=== PATIENT | male | born 1935 | race Caucasian/White ===

== ENCOUNTER 2018-08-10 08:15 | Day surgery (SDC) | payer MEDICARE ==
[2018-08-10] VITALS (537 sets, daily range): BP systolic 118–183; BP diastolic 61–100; PULSE 57–73; TEMP 97.5–97.7; O2SAT 92–100
[~2018-08-10] VITALS: Ht 177.8 cm; Wt 85.8 kg
[2018-08-10] MEDS ORDERED: VITAMIND3 5000 PO (08:49)
[2018-08-10] MEDS ORDERED: COREG 3.123.125 MG/T PO (08:49)
[2018-08-10] MEDS ORDERED: ASPIRIN E.C. 8181 MG PO (08:50)
[2018-08-10 09:10] LABS: HEMATOCRIT 49.5 % (42.0-52.0); HEMOGLOBIN 17.3 g/dl (13.5-18.0); MEAN CELL VOLUME 88 fl (80.0-100.0); MEAN CORPUSCULAR HEMOGLOBIN 31 pg (27.0-31.0); MEAN CORPUSCULAR HGB CONC 35 g/dl (33.0-37.0); MEAN PLATELET VOLUME 9.9 fl (7.4-10.4); PLATELET COUNT 181 K/mm3 (130-400); RED BLOOD COUNT 5.61 M/mm3 (4.20-5.60); REDCELL DISTRIBUTION WIDTH-CV 14.8 % (11.5-14.5)
[2018-08-10] MEDS ORDERED: PRAVACHOL 40MG40 MG PO (09:10)
[2018-08-10] MEDS ORDERED: SYNTHROID 0.0.025 MG PO (09:11)
[2018-08-10] MEDS ORDERED: VITAMINC1000TA PO (09:12)
[2018-08-10] MEDS ORDERED: TURMERIC500 MG PO (09:13)
[2018-08-10] MEDS ORDERED: OLIVE LEAF EXTRACT PO (09:14)
[2018-08-10 09:16] LABS: INR 1.1 (0.8-3.0); PROTHROMBIN TIME 12.3 SECONDS (9.7-12.8)
[2018-08-10 09:21] LABS: CALCIUM 8.8 mg/dL (8.4-10.2); CREATININE, serum 0.97 mg/dL (0.66-1.25); POTASSIUM 4.2 mmol/L (3.4-5.0)
[2018-08-11] VITALS (584 sets, daily range): BP systolic 119–158; BP diastolic 59–84; PULSE 62–78; TEMP 96.9–98.3; O2SAT 82–100
[2018-08-11 06:19] LABS: BASO # 0.1 (0.0-0.2); BASO % 0.6 % (0.0-2.0); EOS # 0.3 (0.0-0.7); EOS % 2.6 % (0-4.0); GRAN # 7.2 (1.4-6.5); GRAN % 61.4 % (42.2-75.2); HEMATOCRIT 49.5 % (42.0-52.0); HEMOGLOBIN 17.5 g/dl (13.5-18.0); LYMPH # 2.9 (1.2-3.4); LYMPH % 25.2 % (20.0-51.0); MEAN CELL VOLUME 88 fl (80.0-100.0); MEAN CORPUSCULAR HEMOGLOBIN 31 pg (27.0-31.0); MEAN CORPUSCULAR HGB CONC 35 g/dl (33.0-37.0); MONO # 1.2 (0.1-0.6); PLATELET COUNT 179 K/mm3 (130-400); RED BLOOD COUNT 5.62 M/mm3 (4.20-5.60); REDCELL DISTRIBUTION WIDTH-CV 14.6 % (11.5-14.5)
[2018-08-11 06:36] LABS: CALCIUM 8.6 mg/dL (8.4-10.2); CREATININE, serum 1.03 mg/dL (0.66-1.25); POTASSIUM 3.9 mmol/L (3.4-5.0)
[2018-08-11] MEDS ORDERED: BRILINTA90 MG PO (08:51)
[2018-08-11] MEDS ORDERED: COZAAR 50MG50 MG/TAB PO (08:52)
== END 2018-08-11 12:00 | disposition home or self-care (01) ==
LOC: COL.CAR 08:15 → ICU 15:00 → COL.CAR 08-11 12:00
PROVIDERS: Internal Medicine Cardiovascular Disease
DX: I25.10 Atherosclerotic heart disease of native coronary artery without angina pectoris (principal); R94.39 Abnormal result of other cardiovascular function study; I08.0 Rheumatic disorders of both mitral and aortic valves; Z95.5 Presence of coronary angioplasty implant and graft; Z95.1 Presence of aortocoronary bypass graft
CPT/HCPCS: OP; C1725; C1760; C1769; C1874; C1887; C1894; C9600; J0583; J1644; J2250; J3010; Q9967